=== PATIENT | female | born 1990 | race Caucasian/White ===

== ENCOUNTER 2020-08-27 13:42 | Emergency (ER) | payer OTHER ==
[~2020-08-27] VITALS: Ht 172.7 cm; Wt 61.2 kg
--- NOTE | 2020-08-27 13:57 | NUR ---
ED Nurse Note: pt presents to ED with knee pain since 1 year when she fell at work. pt reports that her knee occasionally "darrion" and her work advised that she get evaluated. pt reports she takes ibuprofen for pain
[2020-08-27 13:58] VITALS: BP 123/76
--- NOTE | 2020-08-27 14:13 | Emergency Room Report ---
History of Present Illness General Chief Complaint: Pain Source: Patient Present Illness HPI 30-year-old female with no signal past medical history here complaining of right knee injury x1 day. Patient reports that about 1 year ago she landed on both knees and had x-ray of left knee done and was told that she pulled the ligaments however. Knees have been bothering her for quite some time the past [address] been more bothersome especially the right knee. Patient was going down the stairs the other day at work and felt like ankle her knee buckled." However did not follow any injury herself. Has been taking Advil with relief. Denies any tingling numbness per denies any pain radiation. Reports that the pain is worse with extension of the knee. Neurovascularly intact and has full strength of the lower extremities. Denies . Has not followed up with primary care provider disregard. 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 Patient History Past Medical History: see triage record Past Surgical History: none Pertinent Family History: none Last Menstrual Period: 1 month ago Now: No Immunizations: UTD Reviewed Nursing Documentation: PMH: Agreed; PSxH: Agreed Review of Systems All Other Systems: negative except mentioned in HPI Physical Exam Vital Signs Date Time Temp Pulse Resp B/P (MAP) Pulse Ox O2 Delivery O2 Flow Rate FiO2 08/27/20 13:51 98.4 84 16 123/76 (92) 97 Room Air Sp02 EP Interpretation: reviewed, normal General Appearance: no apparent distress, alert, GCS 15, non-toxic Head: normocephalic, atraumatic Eyes: bilateral eye normal inspection, bilateral eye PERRL ENT: hearing grossly normal, normal pharynx, no angioedema, normal voice Neck: full range of motion, supple/symm/no masses Respiratory: chest non-tender, lungs clear, normal breath sounds, speaking full sentences Cardiovascular #1: regular rate, rhythm, no edema Cardiovascular #2: 2+ dorsalis pedis (R), 2+ dorsalis pedis (L) Gastrointestinal: soft Musculoskeletal: back normal, no calf tenderness, gait/station normal, Kaden's Sign negative, non-tender, other - Neurovascularly intact Neurologic: alert, motor strength/tone normal, oriented x3, sensory intact, responsive, speech normal Psychiatric: judgement/insight normal, memory normal, mood/affect normal, no suicidal/homicidal ideation Skin: no rash Lymphatic: no adenopathy Medical Decision Making PA Attestation All my diagnosis and treatment plans were reviewed ad discussed with my supervising physician Dr. Modi Diagnostic Impression: Primary Impression: Right knee sprain ER Course 30-year-old female with no signal past medical history here complaining of right knee injury x1 day. Patient reports that about 1 year ago she landed on both knees and had x-ray of left knee done and was told that she pulled the ligaments however. Knees have been bothering her for quite some time the past 3 months have been more bothersome especially the right knee. Patient was going down the stairs the other day at work and felt like ankle her knee buckled." However did not follow any injury herself. Has been taking Advil with relief. Denies any tingling numbness per denies any pain radiation. Reports that the pain is worse with extension of the knee. Neurovascularly intact and has full strength of the lower extremities. Denies . Has not followed up with primary care provider disregard. Ddx considered but are not limited to: Knee sprain, strain, fracture, contusion, meniscus tear injury Vital signs: are WNL, pt. is afebrile H&PE are most consistent with: right knee sprain with possibility of tendon involvement ORDERS: Knee x-ray, Robaxin, Motrin ER intervention: Dheeraj wrap DISCHARGE: At this time pt. is stable for d/c to home. Will provide printed patient care instructions, and any necessary prescriptions. Care plan and follow up instructions have been discussed with the patient prior to discharge. Take medication as directed, follow-up with primary care provider for referral to orthopedist, MRI of the knee may be needed, if worsening symptoms return to the emergency room Other X-Ray Diagnostic Results Other X-Ray Diagnostic Results : X-Ray ordered: right knee # of Views/Limited Vs Complete: 3 View Indication: Pain EP Interpretation: Yes PA Xray: Interpretation reviewed, by supervising MD, and agrees with findings. Interpretation: no dislocation, no soft tissue swelling, no fractures Impression: No acute disease Electronically Signed by: Wade Cerda PA-C Last Vital Signs Date Time Temp Pulse Resp B/P (MAP) Pulse Ox O2 Delivery O2 Flow Rate FiO2 08/27/20 13:58 98.4 87 16 123/76 97 Room Air Disposition: HOME, SELF-CARE Condition: Stable Referrals: NOT CHOSEN IPA/MD,REFERRING (PCP) Patient Instructions: Knee Sprain, [id number] Additional Instructions: Take medication as directed, follow-up with primary care provider for referral to orthopedist, MRI of the knee may be needed, if worsening symptoms return to the emergency room Wade Worley Aug 27, 2020 14:13
[2020-08-27] MEDS ORDERED: IBUPROFEN600 M1 ORAL (14:17)
[2020-08-27] MEDS ORDERED: ROBAXIN-500MG ORAL (14:17)
[2020-08-27 14:30] VITALS: BP 123/76
--- NOTE | 2020-08-27 14:30 | NUR ---
ER DISCHARGE NOTE: Patient is cleared to be discharged per ERMD, pt is aox4, on room air, with stable vital signs. pt was given dc and prescription instructions, pt was able to verbalize understanding, pt id band removed without complications. pt is able to ambulate with steady gait. pt took all belongings, given her copies of worker's comp forms
--- NOTE | 2020-08-27 14:38 | Diagnostic Imaging Report ---
EXAM: XR Right Knee, 3 Views CLINICAL HISTORY: TRAUMA TECHNIQUE: Three views of the right knee. COMPARISON: No relevant prior studies available. FINDINGS: Bones/joints: Query small joint effusion. No acute fracture. No dislocation. Soft tissues: Unremarkable. IMPRESSION: Query small joint effusion. No acute fracture or malalignment.
== END 2020-08-27 14:30 | disposition home or self-care (01) ==
LOC: EMR 14:05
DX: S83.91XA Sprain of unspecified site of right knee, initial encounter (principal); X58.XXXA Exposure to other specified factors, initial encounter; Y92.9 Unspecified place or not applicable
CPT/HCPCS: 99283